=== PATIENT | female | born 1965 | race Hispanic/Latino ===

== ENCOUNTER 2018-09-08 16:03 | Emergency (ER) | payer BC ==
[~2018-09-08] VITALS: Ht 167.6 cm; Wt 114.0 kg
[2018-09-08] MEDS ORDERED: HYZAAR1 TA1 PO (17:06)
[2018-09-08] MEDS ORDERED: LEVOTHYROXIN150 MCG PO (17:06)
[2018-09-08] MEDS ORDERED: CLONAZEPAM1 MG PO (17:07)
[2018-09-08] MEDS ORDERED: FERR SULFATE325 MG PO (17:07)
[2018-09-08] MEDS ORDERED: METO50TA52 PO (17:08)
[2018-09-08 17:29] LABS: HEMATOCRIT 23.4 % (37.0-47.0); HEMOGLOBIN 7.4 g/dl (12.0-16.0); IMMATURE GRANULOCYTES 2.2 % (0.0-5.0); MEAN CELL VOLUME 86.3 fL CALC (80.0-100.0); MEAN CORPUSCULAR HGB 27.3 pG CALC (26.0-32.0); MEAN CORPUSCULAR HGB CONC 31.6 g/L CALC (32.0-36.0); NEUT# 11.38 thou/uL (2.00-7.15); RED BLOOD COUNT 2.71 mill/uL (4.20-5.60); RED CELL DISTRI WIDTH 14.2 % (11.5-15.5)
[2018-09-08 17:40] LABS: ANION GAP 13 (6-22 (CALC)); BUN 14 mg/dL (7-17); BUN/CREATININE RATIO 22 (12-20 (CALC)); CARBON DIOXIDE 28 mmol/l (22-30); CHLORIDE 100 mmol/l (95-108); CREATININE 0.6 mg/dL (0.5-1.0); GFR > 60 ML/MIN (>=60 (CALC)); GFR FOR AFR.AMER. > 60 ML/MIN (>=60 (CALC)); POTASSIUM 3.4 mmol/l (3.5-5.1); SODIUM 137 mmol/l (137-146)
[2018-09-08 19:30] VITALS: BP 154/68
== END 2018-09-08 19:30 | disposition short-term general hospital (02) | DRG 761 ==
LOC: ED 16:03
PROVIDERS: Family Medicine
DX: N92.0 Excessive and frequent menstruation with regular cycle (principal); R50.9 Fever, unspecified; R53.1 Weakness; I10 Essential (primary) hypertension; R53.83 Other fatigue

== ENCOUNTER 2019-03-10 02:07 | Emergency (ER) | payer BC ==
[~2019-03-10] VITALS: Ht 167.6 cm; Wt 113.6 kg
[~2019-03-10 02:07] MED LIST: CLONAZEPAM1 MG PO; FERR SULFATE325 MG PO; HYZAAR1 TA1 PO; LEVOTHYROXIN150 MCG PO; METO50TA52 PO
[2019-03-10 03:25] LABS: ALBUMIN 4.3 g/dL (3.2-5.0); ALKALINE PHOSPHATASE 93 u/l (38-126); ANION GAP 14 (6-22 (CALC)); BILIRUBIN, TOTAL 0.4 mg/dL (0.0-1.4); BUN 17 mg/dL (7-17); BUN/CREATININE RATIO 27 (12-20 (CALC)); CARBON DIOXIDE 26 mmol/l (22-30); CHLORIDE 104 mmol/l (95-108); CREATININE 0.6 mg/dL (0.5-1.0); GFR > 60 ML/MIN (>=60 (CALC)); GFR FOR AFR.AMER. > 60 ML/MIN (>=60 (CALC)); POTASSIUM 3.7 mmol/l (3.5-5.1); SGOT/AST 18 u/l (14-36); SODIUM 140 mmol/l (137-146); TOTAL PROTEIN 7.4 g/dL (6.3-8.2)
[2019-03-10 03:29] LABS: IMMATURE GRANULOCYTES 0.9 % (0.0-5.0); MEAN CELL VOLUME 83.6 fL CALC (80.0-100.0); MEAN CORPUSCULAR HGB 25.4 pG CALC (26.0-32.0); MEAN CORPUSCULAR HGB CONC 30.3 g/L CALC (32.0-36.0); NEUT# 7.56 thou/uL (2.00-7.15); RED BLOOD COUNT 4.26 mill/uL (4.20-5.60); RED CELL DISTRI WIDTH 15.4 % (11.5-15.5)
[2019-03-10 03:35] LABS: HEMATOCRIT 35.6 % (37.0-47.0); HEMOGLOBIN 10.8 g/dl (12.0-16.0)
[2019-03-10 03:36] LABS: URINE BILIRUBIN - DIPSTICK NEGATIVE (NEGATIVE); URINE BLOOD DIPSTICK LARGE (NEGATIVE); URINE COLOR BLOODY; URINE GLUCOSE - DIPSTICK NEGATIVE (NEGATIVE); URINE KETONE NEGATIVE (NEGATIVE); URINE LEUK ESTERASE TRACE (NEGATIVE); URINE NITRITE - DIPSTICK POSITIVE (Negative); URINE PROTEIN - DIPSTICK >=300 mg/dL (NEG-TRACE); URINE UROBILINOGEN - DIPSTICK 0.2 E.U./dL (0.2)
[2019-03-10 03:38] LABS: URINE BACTERIA FEW hpf; URINE RBC TNTC RBC/hpf (0-5); URINE SQUAMOUS EPITHELIAL CELL FEW EPI/hpf (0-FEW)
[2019-03-10] MEDS ORDERED: MEDROXYPROGESTER5 MG PO (03:54)
[2019-03-10] MEDS ORDERED: SERTRALINE HCL50 MG PO (03:54)
[2019-03-10] MEDS ORDERED: CIPROFLOXACN500 MG PO (04:24)
[2019-03-10 04:36] VITALS: BP 160/69
== END 2019-03-10 04:39 | disposition home or self-care (01) | DRG 760 ==
LOC: ED 02:07
PROVIDERS: Emergency Medicine
DX: N93.9 Abnormal uterine and vaginal bleeding, unspecified (principal); N39.0 Urinary tract infection, site not specified; I10 Essential (primary) hypertension

== ENCOUNTER 2020-11-25 10:15 | Emergency (ER) | payer OTHER ==
[~2020-11-25] VITALS: Ht 167.6 cm; Wt 110.0 kg
[~2020-11-25 10:15] MED LIST changes: +CIPROFLOXACN500 MG PO; +MEDROXYPROGESTER5 MG PO; +SERTRALINE HCL50 MG PO
[2020-11-25] MEDS ORDERED: ASPIRIN81 MG PO (13:20)
[2020-11-25] MEDS ORDERED: BUSPIRONE5 MG PO (13:21)
[2020-11-25] MEDS ORDERED: LIPITOR40 M1 PO (13:21)
[2020-11-25 13:56] VITALS: BP 139/72
== END 2020-11-25 14:10 | disposition home or self-care (01) | DRG 605 ==
LOC: ED 10:15
DX: S00.83XA Contusion of other part of head, initial encounter (principal); S80.02XA Contusion of left knee, initial encounter; M25.532 Pain in left wrist; H57.9 Unspecified disorder of eye and adnexa; I10 Essential (primary) hypertension; F32.9 Major depressive disorder, single episode, unspecified; W01.0XXA Fall on same level from slipping, tripping and stumbling without subsequent striking against object, initial encounter; Y92.89 Other specified places as the place of occurrence of the external cause; Y99.0 Civilian activity done for income or pay

== ENCOUNTER 2022-09-17 08:43 | Emergency (ER) | payer OTHER ==
[~2022-09-17] VITALS: Ht 167.6 cm; Wt 90.0 kg
[~2022-09-17 08:43] MED LIST changes: +ASPIRIN81 MG PO; +BUSPIRONE5 MG PO; +LIPITOR40 M1 PO
[2022-09-17 09:25] VITALS: BP 156/75
[2022-09-17] MEDS ORDERED: HYDROCHLOROT25 MG PO (09:30)
[2022-09-17] MEDS ORDERED: LEVOTHYROXIN150 MCG PO (09:30)
[2022-09-17] MEDS ORDERED: FLEXERIL5 M1 PO (11:08)
[2022-09-17] MEDS ORDERED: TRAMADOL HYDROC50 M1 PO (11:08)
[2022-09-17] MEDS ORDERED: MOTRIN400 MG/TAB PO (11:08)
[2022-09-17 11:14] VITALS: BP 156/75
== END 2022-09-17 11:23 | disposition home or self-care (01) | DRG 552 ==
LOC: ED 08:43
DX: M54.41 Lumbago with sciatica, right side (principal)

== ENCOUNTER 2023-06-10 00:22 | Emergency (ER) | payer OTHER ==
[~2023-06-10] VITALS: Ht 167.6 cm; Wt 97.0 kg
[~2023-06-10 00:22] MED LIST changes: +FLEXERIL5 M1 PO; +HYDROCHLOROT25 MG PO; +MOTRIN400 MG/TAB PO; +TRAMADOL HYDROC50 M1 PO
[2023-06-10 00:28] VITALS: BP 148/70
[2023-06-10 01:01] VITALS: BP 129/96
[2023-06-10 01:14] LABS: BASO% 0.3 % (0-3); EOS% 1.2 % (0-8); HEMATOCRIT 40.6 % (37.0-47.0); HEMOGLOBIN 12.5 g/dl (12.0-16.0); IMMATURE GRANULOCYTES 0.3 % (0.0-5.0); LYMPH% 20.2 % (15-41); MEAN CELL VOLUME 82.4 fL CALC (80.0-100.0); MEAN CORPUSCULAR HGB 25.4 pG CALC (26.0-32.0); MEAN CORPUSCULAR HGB CONC 30.8 g/dL CAL (32.0-36.0); MONO% 5.8 % (2-13); NEUT# 9.52 thou/uL (2.00-7.15); NEUT% 72.2 % (42-76); RED BLOOD COUNT 4.93 mill/uL (4.20-5.60); RED CELL DISTRI WIDTH 14.4 % (11.5-15.5)
[2023-06-10 01:28] LABS: ALBUMIN 4.5 g/dL (3.2-5.0); ALKALINE PHOSPHATASE 131 u/l (38-126); ANION GAP 14 (6-22 (CALC)); BUN 25 mg/dL (7-17); BUN/CREATININE RATIO 31 (12-20 (CALC)); CARBON DIOXIDE 26 mmol/l (22-30); CHLORIDE 102 mmol/l (95-108); CREATININE 0.8 mg/dL (0.5-1.0); GFR FOR AFR.AMER. > 60 ML/MIN (>=60 (CALC)); GFR OTHER RACES > 60 ML/MIN (>=60 (CALC)); POTASSIUM 3.6 mmol/l (3.5-5.1); SGOT/AST 28 u/l (14-36); SODIUM 138 mmol/l (137-146); TOTAL PROTEIN 8.6 g/dL (6.3-8.2)
[2023-06-10 01:31] VITALS: BP 155/67
[2023-06-10 01:40] LABS: BILIRUBIN, TOTAL 0.6 mg/dL (0.02-1.3)
[2023-06-10 02:01] VITALS: BP 168/85
[2023-06-10 02:30] VITALS: BP 155/76
[2023-06-10 02:37] LABS: URINE BILIRUBIN - DIPSTICK Negative (NEGATIVE); URINE BLOOD DIPSTICK Small (NEGATIVE); URINE COLOR Yellow; URINE GLUCOSE - DIPSTICK Negative (NEGATIVE); URINE KETONE Negative (NEGATIVE); URINE LEUK ESTERASE Trace (NEGATIVE); URINE NITRITE - DIPSTICK Negative (Negative); URINE PH 5.5 (4.5-8.0); URINE PROTEIN - DIPSTICK Negative (NEG-TRACE); URINE UROBILINOGEN - DIPSTICK 0.2 E.U./dL (0.2)
[2023-06-10 02:47] LABS: URINE RBC 0-2 RBC/hpf (0-5)
[2023-06-10 02:48] LABS: URINE BACTERIA FEW hpf; URINE SQUAMOUS EPITHELIAL CELL FEW EPI/hpf (0-FEW)
[2023-06-10] MEDS ORDERED: MECLIZINE25 MG PO (02:55)
[2023-06-10 03:00] VITALS: BP 127/79
== END 2023-06-10 03:00 | disposition home or self-care (01) | DRG 149 ==
LOC: ED 00:22
PROVIDERS: Family Medicine
DX: R42 Dizziness and giddiness (principal)